=== PATIENT | female | born 1960 | race Caucasian/White ===

== ENCOUNTER 2017-10-01 17:29 | Emergency (ER) | payer OTHER ==
[~2017-10-01] VITALS: Ht 162.6 cm; Wt 86.4 kg
[2017-10-01 17:37] VITALS: Ht 162.6 cm; Wt 86.4 kg
[2017-10-01] MEDS ORDERED: MUPIROCIN22 GM TOPICAL (20:42)
[2017-10-01] MEDS ORDERED: GENTAMICIN 0.3 %5 ML EACH EYE (20:42)
[2017-10-01] MEDS ORDERED: VOLTAREN75 MG PO (20:42)
[2017-10-01 21:01] VITALS: BP 117/75
== END 2017-10-01 20:55 | disposition home or self-care (01) ==
LOC: D.ER 17:29
DX: M75.21 Bicipital tendinitis, right shoulder (principal); H10.31 Unspecified acute conjunctivitis, right eye; L03.316 Cellulitis of umbilicus; H57.11 Ocular pain, right eye

== ENCOUNTER 2018-11-16 21:23 | Emergency (ER) | payer OTHER ==
[~2018-11-16] VITALS: Ht 162.6 cm; Wt 86.4 kg
[~2018-11-16 21:23] MED LIST: GENTAMICIN 0.3 %5 ML EACH EYE; MUPIROCIN22 GM TOPICAL; VOLTAREN75 MG PO
[2018-11-16 21:30] VITALS: Ht 162.6 cm; Wt 86.4 kg
[2018-11-16 22:04] LABS: APPEARANCE CLEAR (CLEAR); BILIRUBIN NEGATIVE (NEGATIVE); COLOR YELLOW (YELLOW); GLUCOSE NEGATIVE (NEGATIVE); KETONE NEGATIVE (NEGATIVE); NITRITE NEGATIVE (NEGATIVE); PROTEIN NEGATIVE (NEGATIVE); UROBILINOGEN NORMAL (NORMAL)
[2018-11-16 22:05] LABS: BACTERIA MODERATE /hpf (NONE SEEN); EPITHELIAL CELLS 0-5 /hpf (0-5); RED CELLS - URINE OCC /hpf (0-5); WHITE CELLS - URINE 0-5 /hpf (0-5)
[2018-11-16 22:06] LABS: BASOPHILS 0.2 % (0-2); EOSINOPHILS 1.2 % (0-7); HEMATOCRIT 40.3 % (36.0-48.0); HEMOGLOBIN 13.8 g/dL (12-16); LYMPHOCYTES 50.4 % (15-50); MCH 31.5 pg (26.0-34.0); MCHC 34.2 g/dL (31.0-37.0); MONOCYTES 7.3 % (2-11); NEUTROPHILS 40.9 % (40-80); PLATELET COUNT 254 10x3/uL (130-400); RBC 4.38 10x6/uL (4.00-5.40); WBC 5.8 10x3/uL (4.8-10.8)
[2018-11-16] MEDS ORDERED: TORADOL10 MG PO (22:13)
[2018-11-16] MEDS ORDERED: MACROBID100 MG PO (22:13)
[2018-11-16 22:23] LABS: ALKALINE PHOSPHATASE 89 U/L (46-116); ALT (SGPT) 6 U/L (10-68); BILIRUBIN - TOTAL 0.76 mg/dL (0.2-1.3); CALC OSMOLALITY 278 mosm/kg (275-300); CALCIUM 8.7 mg/dL (8.5-10.1); CARBON DIOXIDE 29.7 mmol/L (21.0-32.0); CHLORIDE - SERUM 102 mmol/L (98-107); CREATININE - SERUM 0.8 mg/dL (0.6-1.3); GLUCOSE 89 mg/dL (74-106); POTASSIUM - SERUM 4.1 mmol/L (3.5-5.1); PROTEIN - SERUM 8.1 g/dL (6.4-8.2); SODIUM 140 mmol/L (136-145); UREA NITROGEN 14 mg/dL (7-18); eGFR NON AFRICAN AMERICAN 78 mL/min (90-120)
[2018-11-16 22:42] VITALS: BP 135/74
== END 2018-11-16 22:42 | disposition home or self-care (01) ==
LOC: D.ER 21:23
PROVIDERS: Family Medicine
DX: R35.0 Frequency of micturition (principal); M62.838 Other muscle spasm

== ENCOUNTER 2018-11-22 18:44 | Emergency (ER) | payer OTHER ==
[~2018-11-22] VITALS: Ht 162.6 cm; Wt 85.5 kg
[~2018-11-22 18:44] MED LIST changes: +MACROBID100 MG PO; +TORADOL10 MG PO
[2018-11-22 19:35] VITALS: Ht 162.6 cm; Wt 85.5 kg
[2018-11-22 20:24] VITALS: BP 115/74
== END 2018-11-22 21:54 | disposition home or self-care (01) ==
LOC: D.ER 18:44
DX: R51 Headache (principal)

== ENCOUNTER 2019-03-21 12:08 | Emergency (ER) | payer OTHER ==
[~2019-03-21] VITALS: Ht 162.6 cm; Wt 85.9 kg
[2019-03-21 12:24] VITALS: BP 122/69; Ht 162.6 cm; Wt 85.9 kg
[2019-03-21] MEDS ORDERED: VOLTAREN75 MG PO (13:07)
[2019-03-21] MEDS ORDERED: ZANAFLEX4 MG PO (13:07)
[2019-03-21] MEDS ORDERED: OMEPRAZOLE40 MG PO (13:10)
== END 2019-03-21 13:57 | disposition home or self-care (01) ==
LOC: D.ER 12:08
DX: M62.838 Other muscle spasm (principal); V89.2XXA Person injured in unspecified motor-vehicle accident, traffic, initial encounter; Y93.9 Activity, unspecified; Y92.9 Unspecified place or not applicable; M25.519 Pain in unspecified shoulder; M54.9 Dorsalgia, unspecified; M54.2 Cervicalgia